=== PATIENT | female | born 1975 | race Caucasian/White ===

== ENCOUNTER 2018-10-05 15:07 | Emergency (ER) | payer OTHER ==
[~2018-10-05] VITALS: Ht 162.6 cm; Wt 86.2 kg
[2018-10-05] MEDS ORDERED: VENTOLIN HFA 1818 GM INH (17:47)
[2018-10-05] MEDS ORDERED: VOLTAREN GEL 1100 G1 TOP (17:47)
[2018-10-05] MEDS ORDERED: FLEXERIL PO (17:47)
[2018-10-05] MEDS ORDERED: NAPROSYN500 MG PO (17:47)
[2018-10-05 18:13] VITALS: BP 132/84
== END 2018-10-05 18:14 | disposition home or self-care (01) ==
LOC: ER 15:07
DX: S16.1XXA Strain of muscle, fascia and tendon at neck level, initial encounter (principal); S39.012A Strain of muscle, fascia and tendon of lower back, initial encounter; S29.011A Strain of muscle and tendon of front wall of thorax, initial encounter; R05 Cough; F17.210 Nicotine dependence, cigarettes, uncomplicated; F41.9 Anxiety disorder, unspecified; F31.9 Bipolar disorder, unspecified; Z90.49 Acquired absence of other specified parts of digestive tract; Z88.5 Allergy status to narcotic agent; Z91.040 Latex allergy status; Z90.711 Acquired absence of uterus with remaining cervical stump; V89.2XXA Person injured in unspecified motor-vehicle accident, traffic, initial encounter; Y92.89 Other specified places as the place of occurrence of the external cause; Y93.89 Activity, other specified; Y99.8 Other external cause status